=== PATIENT | female | born 1990 | race Two or more races ===

== ENCOUNTER 2016-11-03 05:30 | Inpatient (IN) | payer OTHER ==
[~2016-11-03] VITALS: Ht 170.2 cm; Wt 144.0 kg
[~2016-11-03 05:30] MED LIST: PRENA1 CHEW TA1.4 MG PO
--- NOTE | 2016-11-04 13:07 | OR ---
[facility] [address], [place] [address] Signed DATE OF SERVICE: 11/03/2016 PREOPERATIVE DIAGNOSES: Term , previous section x2. POSTOPERATIVE DIAGNOSES: Term , previous section x2. PROCEDURE: Repeat low transverse segment section, delivery of a live female . SURGEON: Joe Knight MD. SUPERVISOR ASSEMBLING: Dr. Ryan. ANESTHESIA: Spinal. ESTIMATED BLOOD LOSS: 600 mL. COMPLICATIONS: None. DRAINS: Peguero to bladder. FINDINGS: Live female infant, Apgars 8 and 9. Weight 8 pounds 5 ounces. Normal uterus, normal tubes and ovaries bilaterally. DESCRIPTION OF PROCEDURE: The patient was brought into the operating room, placed in supine position. After adequate spinal anesthesia was obtained, the patient was prepped and draped in the usual sterile fashion. A Pfannenstiel skin incision was made with a scalpel through the previous surgical scar. Subcutaneous tissue was dissected with scalpel and the Bovie. The fascia was nicked with scalpel, extended in transverse fashion using curved scissors. The underlying abdominal musculature was bluntly and sharply from the fascia above and below the incision. The abdominal musculature was fairly well adherent to the fascia and also adherent along the midline. The abdominal musculature was then dissected along the midline on the peritoneum, identified, grasped with hemostats, elevated, and nicked with Godinez scissors and then opened under direct visualization in a vertical fashion. The incision was extended downward towards the symphysis under direct visualization to avoid any adhesions which there were none inside the abdomen. The Zachary self-retaining retractor was inserted into the incision and tightened in place. The lower uterine segment was identified and noted to be well below Electronically Signed By: JOE KNIGHT MD 11/04/16 1307 PATIENT NAME: ANIKET WILSON OPERATIVE REPORT DATE OF : 88 PHYSICIAN: JOE KNIGHT MD REPORT #: [id number] REPORT IS CONFIDENTIAL AND NOT TO BE RELEASED WITHOUT AUTHORIZATION [facility] [address], [place] [address] Signed the bladder. The scalpel was used to carefully joan the lower uterine segment. Finger dissection used to open the incision and then extend the incision and finger dissection used to extend the incision in a transverse fashion. Clear fluid came from the incision. The was noted to be in vertex BRIAN presentation. The infant's head was delivered from the incision. The rest of the infant was then delivered from the incision. The mouth and nose were suctioned with bulb syringe while the cord was doubly clamped and cut. The infant passed off table in good condition to awaiting nurse. The placenta was manually removed and inspected because of ultrasound showing a succenturiate lobe of the placenta but the entire placenta appeared to be intact and there was one area of the placenta that did seem to be partially from the rest of the placenta. The uterine cavity was explored with a lap pad to remove any retained membranes and make sure no additional placental tissue was in the cavity. An angle stitch of 0 Monocryl was then placed at one end of the incision. There was a small vertical extension downwards on the left side. This was controlled with a running locking stitch of 0 Monocryl. A running locking stitch of 0 Monocryl starting at the left angle was then used to c lose the entire incision. A second running locking stitch of 0 Monocryl was used to imbricate the 1st layer. The small extension, which was approximately 2 cm was then imbricated with a hjokqr-jl-tzxot stitch of 0 Monocryl. This extension did appear to be away from the bladder and away from the lateral uterine vessels. At this point, good hemostasis was noted. The entire pelvis was irrigated, suctioned, examined and any superficial bleeding spots were cauterized with the Bovie. The Zachary retractor was then removed from the incision. A sheet of Accell was placed over the lower uterine incision to help with healing and then the peritoneum closed using a running stitch of 2-0 Vicryl suture. The abdominal musculature was reapproximated using interrupted stitch e s of 0 Vicryl suture. The abdominal musculature was irrigated and observed and any bleeding spots cauterized with the Bovie. The abdominal musculature was then sprinkled with powdered Accell. The fascia was then closed using 2 running stitches of 0 Vicryl suture meeting in the midline. Subcutaneous tissue was irrigated, suctioned, examined, any bleeding spots cauterized with the Bovie. Subcutaneous tissue was closed in 2 layers. The bottom layer was closed with a running stitch of 3-0 Vicryl suture and the upper layer closed with interrupted stitches of 3-0 Vicryl suture. The skin was reapproximated using skin clips. The patient tolerated the procedure well, went to recovery room in good condition. The sponge, needle, and instrument count was correct at end procedure. MD MARTHA Serna/Aaron Electronically Signed By: JOE KNIGHT MD 11/04/16 1307 PATIENT NAME: ANIKET WILSON OPERATIVE REPORT DATE OF : 88 PHYSICIAN: JOE KNIGHT MD REPORT #: [id number] REPORT IS CONFIDENTIAL AND NOT TO BE RELEASED WITHOUT AUTHORIZATION [address] [address] Signed /[id number] Electronically Signed By: JEO KNIGHT MD 11/04/16 1307 PATIENT NAME: ANIKET WILSON OPERATIVE REPORT DATE OF : 88 PHYSICIAN: JOE KNIGHT MD REPORT #: [id number] REPORT IS CONFIDENTIAL AND NOT TO BE RELEASED WITHOUT AUTHORIZATION
--- NOTE | 2016-11-05 07:25 | PR ---
[facility] [address] [facility] [place] [address] Signed PP Progress Notes Datetime Report Generated by CPN: 11/05/2016 07:25 SUBJECTIVE: [id number] Pain: Within normal limits Nausea/Vomiting: Denies Vital Signs: [id number] Vital Signs: Reviewed; Within Normal Limits Notable Details: PP HGb/Hct = 10.8/31.6 EXAM: [id number] Abdomen/Uterus: Normal Lochia: Normal Extremities: Normal Incision: Normal IMPRESSION/PLAN/PROCEDURES: [id number] Impression: Normal progression Plan: Discharge Procedures: None Progress Notes: Doing well, ready to go home. Signing Physician: Inder Beckman MD CC: *Electronically Signed* 11/05/16 0725 INDER BECKMAN MD PATIENT NAME: ANIKET WILSON PROGRESS NOTE DATE OF : 88 PHYSICIAN: INDER BECKMAN MD RPT #: [id number] REPORT IS CONFIDENTIAL AND NOT TO BE RELEASED WITHOUT AUTHORIZATION
== END 2016-11-05 10:35 | disposition home or self-care (01) | DRG 766 ==
LOC: FBC 05:30
PROVIDERS: ADMIT General Practice
PROC: 10D00Z1 Extraction of Products of Conception, Low, Open Approach (ICD-10-PCS; principal; 2016-11-03 10:00)
DX: O34.211 Maternal care for low transverse scar from previous cesarean delivery (principal); O75.82 Onset (spontaneous) of labor after 37 completed weeks of gestation but before 39 completed weeks gestation, with delivery by (planned) cesarean section; Z3A.39 39 weeks gestation of pregnancy; Z37.0 Single live birth
CPT/HCPCS: 01961; 36415; 85027; C1763; J0690; J1644; J2175; J2270; J2274; J2300; J2370; J2590; J7120

== ENCOUNTER 2021-05-21 15:06 | Inpatient (IN) | payer OTHER ==
[~2021-05-21] VITALS: Ht 172.7 cm; Wt 140.2 kg
--- NOTE | 2021-05-23 09:25 | NUR ---
05/23/21 0925 Mel Santiago 0913-PATIENT ARRIVED TO ROOM 104 FOR RECOVERY. PATIENT AWAKE DENIES PAIN OR NAUSEA. RA 100% RR EVEN. SPINAL LEVEL AT L1. KASANDRA BAG BLEACHER TO DO TAP BLOCKS. IV TO RIGHT ARM CDI WITH LR 20 PITOCIN INFUSING. SMALL AMT OF DRAINAGE TO NAVDEEP AREA. FUNDUS FIRM ABOVE UMBILICUS PATIENT WINCES WHEN PRESSURE APPLIED. 0925-PATIENT FEEDING BABY TO BREAST. KASANDRA BAG BLEACHER AT BEDSIDE.
--- NOTE | 2021-05-24 11:11 | OR ---
[facility] [address], [place] [address] Signed DATE OF OPERATION: 05/23/2021 SURGEON: Joe Knight MD Patient of Dr. Knight. PREOPERATIVE DIAGNOSES: Term , previous section x3, and morbid obesity. POSTOPERATIVE DIAGNOSES: Term , previous section x3, and morbid obesity. PROCEDURE: Repeat low transverse segment section, delivery live female infant. FISHER SEAL: Marly Muñoz DO ANESTHESIA: Spinal. ESTIMATED BLOOD LOSS: 500 mL. COMPLICATIONS: None. DRAINS: Peguero to bladder. FINDINGS: Live female , Apgars 9 and 9. Weight 6 pounds 13 ounces. Normal uterus, normal tubes and ovaries bilateral. There was some large amount of scar tissue in the anterior abdominal wall joining the subcutaneous tissue, the fascia and the abdominal musculature making entry more difficult. DESCRIPTION OF PROCEDURE: The patient was brought to the operating room, placed in supine position. After adequate spinal anesthesia was obtained, she was prepped and draped in usual sterile fashion. Peguero catheter was placed in the bladder. A Pfannenstiel skin incision was Electronically Signed By: JOE KNIGHT MD 05/24/21 1111 PATIENT NAME: ANIKET MACHADO OPERATIVE REPORT DATE OF : 88 REPORT #: [id number] PHYSICIAN: JOE KNIGHT MD PCP: NO PRIMARY CARE PHYSICIAN REPORT IS CONFIDENTIAL AND NOT TO BE RELEASED WITHOUT AUTHORIZATION [facility] [address], [place] [address] Signed made with a scalpel through previous surgical scar. Subcutaneous tissue was dissected. The subcutaneous tissue was quite thick and scarred, so this was taken down slowly in the midline and using tension to help separate the subcutaneous tissue, this was taken down on the sides and down slowly until the fascia could be identified. The fascia was carefully nicked in the middle down until the abdominal musculature could be seen. At this point, the abdominal fascia was opened in a transverse fashion using curved scissors. The abdominal musculature was bluntly and sharply taken off the fascia using curved scissors above and below the incision. The abdominal musculature was then opened in the midline above the original incision and finger palpation revealed no adhesions or bowel adherent to the abdominal wall. Curved scissors were used then to open the abdominal musculature and pelvic peritoneum in a vertical fashion below the incision. This was carefully done caudally the abdominal musculature as much as possible separate from the peritoneum and cutting the peritoneum after making sure there it was thin and that the bladder was not involved. This was taken down until the scar tissue joined the fascia of abdominal musculature and peritoneum. The Zachary self-retaining retractor was inserted into the incision and tightened in place. The uterus was examined, noted to have no adhesions present, but it was difficult to reach the lower uterine segment because of the position of the incision with the adhesions, so a transverse incision was made slightly higher than normal by making a joan in the midline with a scalpel and extending the incision in the transverse fashion using finger dissection. Clear fluid came from the incision. The infant was easily delivered from the incision. Cord doubly clamped and cut. The infant passed off table in good condition to the awaiting nurse. The placenta was manually removed and uterine cavity was explored with a lap pad to remove any retained membranes. An angle stitch of 0 Monocryl was placed at one end of the incision. A running locking stitch of 0-Monocryl starting at the other end used to close the incision. A 2nd running stitch of 0 Monocryl was used to imbricate the 1st layer. Good hemostasis was noted except for the left angle which was controlled with a cnxqey-kr-aricy stitch of 0 Monocryl while keeping finger behind the broad ligament to make sure that no bowel or pelvic structures were caught in the closure. When good hemostasis was obtained, the pelvis was irrigated, suctioned, and examined, and any superficial bleeding spots were cauterized with the Bovie. At this point, the Zachary retractor was removed and the anterior wall of the peritoneum closed using running stitch of 2-0 Vicryl suture. The abdominal musculature and scar tissue were examined. Because of the scar tissue in the middle incorporating the peritoneum in the abdominal musculature, second layer of abdominal musculature closure was not needed. There were several places that were bleeding in the muscle and these were controlled with cydakx-uy-cumou stitch of 0 Vicryl suture and good hemostasis was obtained. The abdominal musculature was irrigated, suctioned, and examined, and any superficial bleeding spots were cauterized with the Bovie. There was some superficial bleeding up in the upper left corner and seemed to be controlled but because of difficulty reaching the area and closure, additional treatment was done by using Tisseel on the abdominal Electronically Signed By: JOE KNIGHT MD 05/24/21 1111 PATIENT NAME: ANIKET MACHADO OPERATIVE REPORT DATE OF : 88 REPORT #: [id number] PHYSICIAN: JOE KNIGHT MD PCP: NO PRIMARY CARE PHYSICIAN REPORT IS CONFIDENTIAL AND NOT TO BE RELEASED WITHOUT AUTHORIZATION [place] [address] Signed musculature to further help hemostasis. The fascia was then closed using two running stitch of 0 Vicryl suture meeting in the midline. Fascia was rather thickened and tough. At this point, subcutaneous tissue was irrigated, suctioned, examined and any bleeding spots were cauterized with the Bovie. Subcutaneous tissue was closed in two layers, 1st layer running stitch of 3-0 Vicryl suture and the 2nd layer interrupted stitch of 3-0 Vicryl suture. Skin was then reapproximated using skin clips. The patient tolerated the procedure well, went to recovery room in good condition. The sponge, needle, and instrument counts were correct. Joe Knight MD MJB/MODL /[id number] Copies: ~ Electronically Signed By: JOE KNIGHT MD 05/24/21 1111 PATIENT NAME: ANIKET MACHADO OPERATIVE REPORT DATE OF : 88 REPORT #: [id number] PHYSICIAN: JOE KNIGHT MD PCP: NO PRIMARY CARE PHYSICIAN REPORT IS CONFIDENTIAL AND NOT TO BE RELEASED WITHOUT AUTHORIZATION
--- NOTE | 2021-05-24 11:13 | PR ---
[facility] [address] [facility] [place] [address] Signed PP Progress Notes Datetime Report Generated by CPN: 05/24/2021 11:13 SUBJECTIVE: [id number] Pain: Within Normal Limits Nausea/Vomiting: Denies Vital Signs: [id number] Vital Signs: Reviewed; Within Normal Limits Notable Details: PP Hgb/Hct = 10.3/31.9 EXAM: Ongoing Abdomen/Uterus: Normal Lochia: Normal Extremities: Normal Incision: Normal IMPRESSION/PLAN/PROCEDURES: [id number] Impression: Normal Progression Plan: Continue Present Management Procedures: None Progress Notes: Patient doing well ,without complaint, has been up and moving, tolerating food well, Peguero is out and she has showered. Signing Physician: Inder Beckman MD Copies: ~ *Electronically Signed* 05/24/21 1113 INDER BECKMAN MD PATIENT NAME: ANIKET MACHADO PROGRESS NOTE DATE OF : 88 PHYSICIAN: INDER BECKMAN MD RPT #: [id number] REPORT IS CONFIDENTIAL AND NOT TO BE RELEASED WITHOUT AUTHORIZATION
--- NOTE | 2021-05-25 12:18 | PR ---
[facility] [address] [facility] [place] [address] Signed PP Progress Notes Datetime Report Generated by CPN: 05/25/2021 12:18 SUBJECTIVE: [id number] Pain: Within Normal Limits Nausea/Vomiting: Denies Vital Signs: [id number] Vital Signs: Reviewed; Within Normal Limits Notable Details: PP Hgb/Hct = 10.3/31.9 EXAM: Ongoing Abdomen/Uterus: Normal Lochia: Normal Extremities: Normal Incision: Normal IMPRESSION/PLAN/PROCEDURES: [id number] Impression: Normal Progression Plan: Discharge Procedures: None Progress Notes: Doing well, without complaint, moving well, ready to go home. Signing Physician: Inder Beckman MD Copies: ~ *Electronically Signed* 05/25/21 1218 INDER BECKMAN MD PATIENT NAME: ANIKET MACHADO PROGRESS NOTE DATE OF : 88 PHYSICIAN: INDER BECKMAN MD RPT #: [id number] REPORT IS CONFIDENTIAL AND NOT TO BE RELEASED WITHOUT AUTHORIZATION
== END 2021-05-25 12:35 | disposition home or self-care (01) | DRG 788 ==
LOC: FBC 05-23 05:15
PROVIDERS: ADMIT General Practice; ATTEND General Practice
PROC: 10D00Z1 Extraction of Products of Conception, Low, Open Approach (ICD-10-PCS; principal; 2021-05-23 07:30)
DX: O34.211 Maternal care for low transverse scar from previous cesarean delivery (principal); D64.89 Other specified anemias; O90.81 Anemia of the puerperium; O99.214 Obesity complicating childbirth; Z3A.39 39 weeks gestation of pregnancy; Z37.0 Single live birth; E66.01 Morbid (severe) obesity due to excess calories; Z79.899 Other long term (current) drug therapy
CPT/HCPCS: 01961; 36415; 64488; 76942; 80503; 85027; 86850; 86900; 86901; A9270; J0690; J1644; J1885; J2001; J2274; J2300; J2405; J2590; J2795